=== PATIENT | male | born 1945 | race Caucasian/White ===

== ENCOUNTER → 2019-11-02 | Outpatient (CLI) | payer OTHER ==
[~2019-11-02] MED LIST: CONTRAST GIVEN. MC PRN; INSU100V6 SQ; IOHEXOL 300 MG/ML 100ML VIAL. IV ONE; WARF1TAB69 PO
--- NOTE | 2019-11-02 13:48 | KCIC ---
Examination: CT ABDOMEN PELVIS WO/W History: Gross hematuria Comparison/Correlation: None Findings: Axial images of the abdomen and pelvis were obtained without contrast. Axial images of the abdomen and pelvis were then again obtained following IV contrast up according to CT urogram protocol. Sagittal and coronal reformatted images were provided. Maximum intensity projection images of the collecting systems were provided. Coronary arterial calcification noted. Mild bilateral lower lobe bronchiectasis greater on the left is noted. Surgical clips are noted about the spleen. Subtle nodular contour of the liver is present. A few calculi are present within the dependent aspect of the gallbladder. No biliary dilatation. Pancreas is normal. Glands are normal. Left renal interpolar region cyst is present. It is of low density with -16 Hounsfield units on precontrast imaging and up to -11 Hounsfield units on postcontrast imaging. There is an approximately 1 cm diameter cyst involving the right renal superior pole. No suspicious features although it is somewhat small for characterization. There are no radiopaque collecting system calculi. Symmetric perfusion of the kidneys with contrast. Symmetric excretion of contrast is evident. No hydronephrosis or hydroureter. Ureters do not fully opacify with contrast. No suspicious filling defects involving the mostly visualized ureters. No hydroureter. Epigastric level ventral hernia defect in the midline measuring 1.8 cm longitudinal by 2.7 cm transverse contains omental fat. Right supraumbilical ventral hernia defect measuring 2.3 cm transverse is present. Left supraumbilical ventral hernia defect measuring 2.2 cm diameter is present containing a few transverse colonic diverticuli. Appendix is normal. No bowel obstruction. Diverticulosis of the colon is present. Circumferential wall thickening of the urinary bladder is notable. Subtle surrounding stranding about the urinary bladder is questioned. Urinary bladder is mostly decompressed. There is no abdominal aortic aneurysm. Multilevel degenerative disc space narrowing involving the lumbar spine noted. Impression: Circumferential wall thickening of the urinary bladder with surrounding stranding is of concern for cystitis. Underlying more suspicious process including neoplastic etiology is not excluded. No radiopaque calculi. No definite solid renal mass identified. Bilateral renal cysts are present no suspicious features. Correlate clinically in determining the need for interval follow-up in this patient with reported history of gross hematuria. Ventral abdominal wall hernias. Cholelithiasis. Subtle nodular contour of the liver which raises question of early cirrhosis or other fibrotic process. PQRS Compliance Statement: One or more of the following individualized dose reduction techniques were utilized for this examination: 1. Automated exposure control 2. Adjustment of the mA and/or kV according to patient size 3. Use of iterative reconstruction technique Electronically signed by: Zi Dunham MD (11/02/2019 1:45 PM) [id number]
== END | disposition home or self-care (01) ==
LOC: KCIC CT 10:58
PROVIDERS: ATTEND Urology
DX: N28.1 Cyst of kidney, acquired (principal); K80.20 Calculus of gallbladder without cholecystitis without obstruction; K43.9 Ventral hernia without obstruction or gangrene; K57.30 Diverticulosis of large intestine without perforation or abscess without bleeding; I25.10 Atherosclerotic heart disease of native coronary artery without angina pectoris; J47.9 Bronchiectasis, uncomplicated; M48.061 Spinal stenosis, lumbar region without neurogenic claudication
CPT/HCPCS: 74178; 82565; Q9967